=== PATIENT | female | born 1970 | race Caucasian/White ===

== ENCOUNTER → 2017-06-17 | Outpatient (CLI) | payer OTHER ==
--- NOTE | 2017-06-17 11:39 | XR ---
EXAMINATION TYPE: XR wrist complete LT DATE OF EXAM: 06/17/2017 CLINICAL HISTORY: Lateral wrist pain after lifting injury at work. TECHNIQUE: Frontal, lateral and oblique images of the left wrist are obtained. Scaphoid view was als o obtained. COMPARISON: None FINDINGS: There is no acute fracture/dislocation evident in the left wrist. The joint spaces in the left wrist appear within normal limits. The overlying soft tissue appears unremarkable. IMPRESSION: There is no acute fracture or dislocation in the left wrist.
== END | disposition home or self-care (01) ==
LOC: RADXRMAIN 11:03
PROVIDERS: ATTEND Emergency Medicine
DX: S63.502A Unspecified sprain of left wrist, initial encounter (principal)

== ENCOUNTER → 2018-05-12 | Outpatient (CLI) | payer BC ==
[2018-05-12 10:00] LABS: Potassium 4.2 mmol/L (3.5-5.1)
== END | disposition home or self-care (01) ==
LOC: LABPAT 08:56
PROVIDERS: ATTEND Anesthesiology
DX: Z01.818 Encounter for other preprocedural examination (principal); Z01.812 Encounter for preprocedural laboratory examination
CPT/HCPCS: 36415; 80051; 93005

== ENCOUNTER 2018-05-15 06:24 | Day surgery (SDC) | payer BC, OTHER ==
[2018-05-09 12:04] VITALS: BMI 42.5
[~2018-05-15 06:24] MED LIST: DEXAMETHASONE SOD PHOSPHATE 10 MG/ML 1 ML VIAL IV ONE; HEPARIN SODIUM,PORCINE 5,000 UNIT/ML 1 ML VIAL SQ ONE; HYDROmorphone 0.5 MG/0.5 ML SYRINGE IVP PRN; LACTATED RINGERS 1,000 ML IV SCH; LIDOCAINE 1% 20 ML VIAL (10MG/ML) FOR IV START INTRADERMA PRN; ONDANSETRON 4 MG/2 ML VIAL IVP ONE; SCOPOLAMINE 1.5MG/72HR PATCH TRANSDERM ONE; ceFAZolin IN SWFI 2 GM/20 ML SYRINGE IVP ONE; metroNIDAZOLE-NS PMX 500 MG in SALINE 1 100ML.BAG IVPB ONE
[2018-05-15 07:18] VITALS: RESP 16; TEMP 98
[2018-05-15 07:26] LABS: Glucose,Whole Blood 117 mg/dL (75-99)
--- NOTE | 2018-05-15 07:55 | P.GSHP ---
History of Present Illness H&P Date: 05/15/18 Chief Complaint: Pilonidal cyst This is a 48-year-old female who presents today for excision of pilonidal cyst. Patient issues with chronic skin irritation at the area of a pilonidal cyst. Patient aware the cyst will be excised and the OV local wound care with packing afterwards the procedure. Past Medical History Past Medical History: Diabetes Mellitus, Hypertension Additional Past Medical History / Comment(s): PILONIDAL CYST History of Any Multi-Drug Resistant Organisms: None Reported Past Surgical History: Tubal Ligation Past Anesthesia/Blood Transfusion Reactions: No Reported Reaction Smoking Status: Former smoker - Past Family History Mother Family Medical History: No Reported History Medications and Allergies Home Medications Medication Instructions Recorded Confirmed Type Hydrochlorothiazide [Hydrodiuril] 12.5 mg PO DAILY 07/30/14 05/15/18 History Ergocalciferol (Vitamin D2) 50,000 unit PO TH 05/09/18 05/15/18 History [Vitamin D2] metFORMIN HCL [Glucophage] 500 mg PO BID 05/09/18 05/15/18 History Allergies Allergy/AdvReac Type Severity Reaction Status Date / Time No Known Allergies Allergy Verified 05/09/18 11:59 Surgical - Exam Vital Signs Temp Pulse Resp BP Pulse Ox 98.0 F 68 16 96/59 97 05/15/18 07:16 05/15/18 07:16 05/15/18 07:16 05/15/18 07:16 05/15/18 07:16 - General well developed, no distress - Eyes PERRL - ENT normal pinna - Neck no masses - Respiratory normal expansion - Cardiovascular Rhythm: regular - Abdomen Abdomen: soft, non tender - Integumentary Chronically inflamed pilonidal cyst Results - Labs Abnormal Lab Results - Last 24 Hours (Table) 05/15/18 Range/Units 07:22 POC Glucose (mg/dL) 117 H (75-99) mg/dL Assessment and Plan Assessment: Analysis. We'll perform excision.
[2018-05-15] MEDS ORDERED: LIDOCAINE 1% INJ 10MG/ML (20 ML MDV) ONE (08:00)
[2018-05-15] MEDS ORDERED: PROPOFOL 10 MG/ML 20 ML VIAL IV ONE (08:00)
[2018-05-15] MEDS ORDERED: fentaNYL (PF) 50 MCG/ML 2 ML AMP ONE (08:00)
[2018-05-15] MEDS ORDERED: MIDAZOLAM 2 MG/2 ML VIAL ONE (08:00)
[2018-05-15] MEDS ORDERED: BUPIVACAINE-EPI 0.5%-1:200,000 10 ML VIAL SQ ONE (08:16)
--- NOTE | 2018-05-15 09:03 | P.OP ---
Date of Procedure: 05/15/18 Preoperative Diagnosis: Chronic pilonidal cyst Postoperative Diagnosis: Chronic pilonidal cyst Procedure(s) Performed: Pilonidal cystectomy complex Anesthesia: MAC Surgeon: Socrates Mills Estimated Blood Loss (ml): 5 Pathology: other (Pilonidal cyst) Condition: stable Disposition: PACU Description of Procedure: The patient's placed on the operating table in the supine position. She received IV sedation. She is then placed in the prone jackknife position. Her area of the pilonidal cyst was prepped and draped usual sterile fashion. The areas anesthetized 1% local Xylocaine. Elliptical skin incision was made around phimosis. He is much cautery by mouth cyst was excised. The Bovie was used for hemostasis. The wound was packed with Kerlix. Patient tolerated the procedure well and was sent to recovery room stable condition.
[2018-05-15 09:27] VITALS: BP 116/71; PULSE 71
== END 2018-05-15 09:40 | disposition home health service (06) ==
LOC: OR 06:24
PROVIDERS: ATTEND Surgery
DX: L05.01 Pilonidal cyst with abscess (principal); I10 Essential (primary) hypertension; E11.9 Type 2 diabetes mellitus without complications; Z79.84 Long term (current) use of oral hypoglycemic drugs; Z87.891 Personal history of nicotine dependence; Z79.899 Other long term (current) drug therapy
CPT/HCPCS: 81025; 88304; 11770; J2250; J1644; J1100; J2405; J2001; J3010; J2704; J0690

== ENCOUNTER → 2018-06-03 | Day surgery (SDC) | payer BC ==
[2018-06-03 07:32] VITALS: RESP 16; BMI 42.7
[2018-06-03 08:43] VITALS: BP 95/63; PULSE 65; TEMP 97.9
--- NOTE | 2018-06-03 11:23 | USB ---
EXAMINATION TYPE: US biopsy breast VAD LT, US biopsy breast add'l VAD LT DATE OF EXAM: 06/03/2018 CLINICAL HISTORY: N63 breast mass. 2 site left-sided breast biopsy with the lesions noted at the 5:00 and 6:00 positions. TECHNIQUE: Ultrasound guided core biopsy of breast. COMPARISON: NONE FINDINGS: The procedure of ultrasound guided core biopsy was explained to the patient. Benefits, alt ernatives, and risks were discussed. An informed consent was then obtained. The patient was placed in supine positioning for imaging and for the procedure. The overlying skin w as prepped and draped in usual sterile fashion. Lidocaine buffered with bicarbonate was used as anes thetic into the skin and subcutaneous tissue up to areas of concern. Under ultrasound guidance, a 12-gauge vacuum assisted biopsy gun device was used to obtain 3 core rob ples from the 5:00 lesion and 4 samples from the 6:00 lesion. Following this, a biopsy clip was plac ed in each lesion. The patient tolerated the procedure well without any immediate complication. The patient was kept in the radiology department for short stay after the procedure and then discharged h ome in stable condition. IMPRESSION: Successful, uncomplicated ultrasound guided core biopsy of areas of concern in the left b reast, full pathology results to follow.
== END ==
LOC: RADUSWWP 07:06
PROVIDERS: ATTEND Surgery
DX: N63.23 Unspecified lump in the left breast, lower outer quadrant (principal)
CPT/HCPCS: 88305; 77065; 19083; 19084; A4648; J2001

== ENCOUNTER 2022-03-01 21:04 | Observation (INO) | payer BC ==
--- NOTE | 2022-03-01 21:41 | XR ---
EXAMINATION TYPE: XR chest 2V DATE OF EXAM: 03/01/2022 9:25 PM COMPARISON: None TECHNIQUE: XR chest 2V Frontal and lateral views of the chest. CLINICAL INDICATION:Female, 51 years old with history of Chest Pain; FINDINGS: Lungs/Pleura: There is no evidence of pleural effusion, focal consolidation, or pneumothorax. Pulmonary vascularity: Unremarkable. Heart/mediastinum: Cardiomediastinal silhouette is unremarkable. Musculoskeletal: No acute osseous pathology. IMPRESSION: No acute cardiopulmonary disease/process.
[2022-03-01 21:49] LABS: Basophils # (A) 0.1 k/uL (0-0.2); Basophils % (A) 0 %; Eosinophils # (A) 0.3 k/uL (0-0.7); Eosinophils % (A) 2 %; HCT 39.1 % (34.0-46.0); HGB 12.6 gm/dL (11.4-16.0); Lymphocytes # (A) 4.4 k/uL (1.0-4.8); Lymphocytes % (A) 32 %; MCH 27.5 pg (25.0-35.0); MCHC 32.1 g/dL (31.0-37.0); MCV 85.7 fL (80.0-100.0); Mean Platelet Volume 7.6; Monocytes # (A) 0.5 k/uL (0-1.0); Monocytes % (A) 4 %; Neutrophils # (A) 8.2 k/uL (1.3-7.7); Neutrophils % (A) 60 %; Platelet Count 419 k/uL (150-450); RBC 4.56 m/uL (3.80-5.40); RDW 14.3 % (11.5-15.5); WBC 13.7 k/uL (3.8-10.6)
[2022-03-01 22:00] LABS: INR 0.9 (<1.2); Partial Thromboplastin Time 23.7 sec (22.0-30.0); Prothrombin Time 10.2 sec (9.0-12.0)
[2022-03-01 22:02] LABS: Albumin 3.9 g/dL (3.5-5.0); Calcium 8.8 mg/dL (8.4-10.2); Magnesium 1.8 mg/dL (1.6-2.3); Potassium 3.5 mmol/L (3.5-5.1); Total Bilirubin 0.3 mg/dL (0.2-1.3)
[2022-03-02] MEDS ORDERED: HEPARIN SOD,PORK IN 0.45% NACL PMX 25,000 UNIT/250 ML BAG IV ONE (01:00)
[2022-03-02] MEDS ORDERED: ASPIRIN 81 MG ONE (01:00)
[2022-03-02] MEDS ORDERED: HEPARIN SODIUM 1,000 UN/ML (10ML VL) ONE (01:00)
--- NOTE | 2022-03-02 06:59 | XR ---
EXAM: XR Chest, 1 View CLINICAL HISTORY: chest pain TECHNIQUE: Frontal view of the chest. COMPARISON: 07/30/2014 FINDINGS: Lungs: No consolidation or mass. Pleural space: No acute findings Heart: Mild cardiomegaly. Bones/joints: No acute findings. IMPRESSION: No acute cardiopulmonary process.
[2022-03-02 09:14] LABS: Basophils # (A) 0.06 X 10*3/uL (0.00-0.10); Basophils % (A) 0.5 %; Eosinophils # (A) 0.23 X 10*3/uL (0.04-0.35); Eosinophils % (A) 1.9 %; HCT 36.5 % (37.2-46.3); HGB 11.3 g/dL (12.0-15.0); Immature Grans, Automated 0.6 %; Lymphocytes # (A) 4.57 X 10*3/uL (0.90-5.00); Lymphocytes % (A) 37.6 %; MCH 26.5 pg (27.0-32.0); MCV 85.7 fL (80.0-97.0); Mean Platelet Volume 10.5 fL (9.5-12.2); Monocytes # (A) 0.79 X 10*3/uL (0.20-1.00); Monocytes % (A) 6.5 %; NRBC Per 100 WBC 0 /100 WBCS (0.0-0.0); Neutrophils # (A) 6.45 X 10*3/uL (1.80-7.70); Neutrophils % (A) 52.9 %; Platelet Count 370 X 10*3/uL (140-440); RBC 4.26 X 10*6/uL (4.10-5.20); RDW 14.4 % (11.5-14.5); WBC 12.17 X 10*3/uL (4.50-10.00)
[2022-03-02 09:37] LABS: African American GFR (CKD) 75.5 (60.0-200.0); Anion Gap 11.6 mmol/L (10.00-18.00); BUN/Creat Ratio 15.3 Ratio (12.00-20.00); Blood Urea Nitrogen 15.3 mg/dL (9.0-27.0); Calcium 9.3 mg/dL (8.7-10.3); Carbon Dioxide 25.4 mmol/L (20.0-27.5); Magnesium 2.1 mg/dL (1.5-2.4); Non-African American GFR(CKD) 65.2 (60.0-200.0); Potassium 3.9 mmol/L (3.5-5.5)
[2022-03-02] MEDS: HEPARIN SOD,PORK IN 0.45% NACL 25,000 UNIT in 0.45% NACL 1 250ML.BAG IV SCH (12:25)
[2022-03-02] MEDS ORDERED: IBUPROFEN 400 MG TAB PO PRN (13:05)
[2022-03-02] MEDS ORDERED: ALPRAZolam 0.25 MG TAB PO PRN (13:05)
[2022-03-02] MEDS ORDERED: MORPHINE SULFATE 4 MG/ML SYRINGE IVP PRN (13:05)
[2022-03-02] MEDS ORDERED: ONDANSETRON 4 MG/2 ML VIAL IVP PRN (13:05)
[2022-03-02] MEDS ORDERED: ACETAMINOPHEN TAB 325 MG TAB PO PRN (13:05)
[2022-03-02 13:20] LABS: Glucose,Whole Blood 146 mg/dL (75-99)
[2022-03-02] MEDS ORDERED: HEPARIN SODIUM 1,000 UN/ML (10ML VL) IV PRN (14:26)
[2022-03-02] MEDS ORDERED: HEPARIN SODIUM 1,000 UN/ML (10ML VL) IV ONE (14:26)
[2022-03-02 17:43] LABS: Glucose,Whole Blood 145 mg/dL (75-99)
[2022-03-02 20:13] LABS: Glucose,Whole Blood 153 mg/dL (75-99)
[2022-03-03] MEDS: HEPARIN SOD,PORK IN 0.45% NACL 25,000 UNIT in 0.45% NACL 1 250ML.BAG IV SCH (01:29)
[2022-03-03 05:10] LABS: INR 0.9 (<1.2); Partial Thromboplastin Time 48.3 sec (22.0-30.0); Prothrombin Time 10.4 sec (9.0-12.0)
[2022-03-03] MEDS ORDERED: INSULIN ASPART (NovoLOG) 100 UNIT/ML VIAL SQ SCH (07:30)
[2022-03-03 07:40] LABS: Glucose,Whole Blood 175 mg/dL (75-99)
[2022-03-03 08:28] VITALS: BP 107/69; PULSE 70; RESP 16; TEMP 97.9
--- NOTE | 2022-03-03 08:28 | P.HPIM ---
History of Present Illness Covering Dr. Del Rio starting from today 03/03 and tomorrow 03/04. Dr. Del Rio resume the care of the patient on Saturday. This is a pleasant 51 years old female with past medical history of diabetes mellitus, hypertension, cigarette smoker. Patient was admitted yesterday under Dr. Del Rio service for chest pain. Patient states she was working on her progress when she developed left arm pain and chest heaviness and tightness with some dyspnea that lasted for about 5 minutes, relieved by rest, while she is at rest she has another 2 episodes of chest tightness and left arm pain each one lasted for 5 minutes again. Patient states that her pain resolved now. She had some nausea but no vomiting. No dyspnea. No headache or numbness. No weakness. No urinary complaints or diarrhea. No fever. She smokes about half pack to one pack per day. No alcohol or illicit drugs She takes Abilify for depression and Lexapro for anxiety, she follow up with Lindy her primary physician for this purpose, a psychiatrist but she denies any signs and symptoms of depression or anxiety. She denies suicidal or homicidal ideation. Patient is afebrile, rest of Vitas looks stable labs on admission showing mild leukocytosis of 12.1, hemoglobin 11.3. Rest of CBC is unremarkable. BNP is unremarkable. Glucose 145. Phosphorus 4.0. Troponin 2 are connected less than 0.012. Chest x-ray: No acute cardiopulmonary process patient was started on heparin drip and admitted to the hospital Review of Systems Review of systems CONSTITUTIONAL: No fever, no malaise, no fatigue. HEENT: No recent visual problems or hearing problems. Denied any sore throat. CARDIOVASCULAR: No orthopnea, PND, no palpitations, no syncope. PULMONARY: No shortness of breath, no cough, no hemoptysis. GASTROINTESTINAL: No diarrhea, no nausea, no vomiting, no abdominal pain. Normoactive bowel sounds. NEUROLOGICAL: No headaches, no weakness, no numbness. HEMATOLOGICAL: Denies any bleeding or petechiae. GENITOURINARY: Denies any burning micturition, frequency, or urgency. MUSCULOSKELETAL/RHEUMATOLOGICAL: Denies any joint pain, swelling, or any muscle pain. ENDOCRINE: Denies any polyuria or polydipsia. Past Medical History Past Medical History: Diabetes Mellitus, Hypertension Additional Past Medical History / Comment(s): NIDDM type II History of Any Multi-Drug Resistant Organisms: None Reported Past Surgical History: Tubal Ligation Additional Past Surgical History / Comment(s): Excision of pilonidal cyst Past Anesthesia/Blood Transfusion Reactions: No Reported Reaction Smoking Status: Current every day smoker - Past Family History Mother Family Medical History: Cancer Additional Family Medical History / Comment(s): Mother from cancer, unknown primary Father Family Medical History: COPD Additional Family Medical History / Comment(s): Father from COPD Medications and Allergies Home Medications Medication Instructions Recorded Confirmed Type metFORMIN HCL [Glucophage] 500 mg PO BID 05/09/18 03/02/22 History ARIPiprazole [Abilify] 2 mg PO HS 03/02/22 03/02/22 History Ergocalciferol [Vitamin D2 (1250 1,250 mcg PO TH 03/02/22 03/02/22 History Mcg = 14796 Iu)] Escitalopram [Lexapro] 20 mg PO DAILY 03/02/22 03/02/22 History Lisinopril-Hctz 20-25 mg 1 tab PO DAILY 03/02/22 03/02/22 History [Zestoretic 20-25] Allergies Allergy/AdvReac Type Severity Reaction Status Date / Time No Known Allergies Allergy Verified 03/02/22 07:56 Physical Exam Vitals: Vital Signs Temp Pulse Pulse Resp BP BP Pulse Ox 03/03/22 01:02 98.3 F 80 18 100/66 98 03/02/22 19:52 97.6 F 84 128/84 97 03/02/22 14:33 98 F 70 16 100/67 98 03/02/22 14:00 70 16 03/02/22 12:38 97.8 F 68 18 99/67 98 03/02/22 12:19 84 18 127/86 95 03/02/22 07:58 82 18 123/79 96 Intake and Output 03/02/22 03/03/22 03/03/22 22:59 06:59 14:59 Intake Total 229.367 69.734 Balance 229.367 69.734 Intake: Intake, IV Titration 111.367 69.734 Amount Heparin Sod,Pork in 0.45% 111.367 69.734 NaCl 25,000 unit In 0.45 % NaCl 1 250ml.bag @ 7. 763 UNITS/KG/HR 10 mls/hr IV .Q24H [facility] Rx#: [id number] Oral 118 Other: # Voids 1 -GENERAL: The patient is alert and oriented x3, not in any acute distress. Morbidly obese HEENT: Pupils are round and equally reacting to light. EOMI. No scleral icterus. No conjunctival pallor. Normocephalic, atraumatic. No pharyngeal erythema. No thyromegaly. CARDIOVASCULAR: S1 and S2 present. No murmurs, rubs, or gallops. PULMONARY: Chest is clear to auscultation, no wheezing or crackles. ABDOMEN: Soft, nontender, nondistended, normoactive bowel sounds. No palpable organomegaly. MUSCULOSKELETAL: No joint swelling or deformity. EXTREMITIES: No cyanosis, clubbing, or pedal edema. NEUROLOGICAL: Gross neurological examination did not reveal any focal deficits. SKIN: No rashes. no petechiae. Results CBC & Chem 7: 03/02/22 05:05 03/02/22 05:05 Labs: Abnormal Lab Results - Last 24 Hours (Table) 03/02/22 03/02/22 03/02/22 Range/Units 05:05 05:05 13:18 WBC 12.17 H (4.50-10.00) X 10*3/uL Hgb 11.3 L (12.0-15.0) g/dL Hct 36.5 L (37.2-46.3) % MCH 26.5 L (27.0-32.0) pg MCHC 31.0 L (32.0-37.0) g/dL Immature Gran # 0.07 H (0.00-0.04) X 10*3/uL APTT (22.0-30.0) sec Glucose 145 H (70-110) mg/dL POC Glucose (mg/dL) 146 H (75-99) mg/dL 03/02/22 03/02/22 03/03/22 Range/Units 17:40 20:12 04:42 WBC (4.50-10.00) X 10*3/uL Hgb (12.0-15.0) g/dL Hct (37.2-46.3) % MCH (27.0-32.0) pg MCHC (32.0-37.0) g/dL Immature Gran # (0.00-0.04) X 10*3/uL APTT 48.3 H (22.0-30.0) sec Glucose (70-110) mg/dL POC Glucose (mg/dL) 145 H 153 H (75-99) mg/dL Thrombosis Risk Factor Assmnt - Choose All That Apply Any of the Below Risk Factors Present?: Yes Each Factor Represents 1 point: Age 41-60 years, Obesity (BMI >25) Other Risk Factors: No Other congenital or acquired thrombophilia - If yes, enter type in comment: No Thrombosis Risk Factor Assessment Total Risk Factor Score: 2 Thrombosis Risk Factor Assessment Level: Low Risk Assessment and Plan Assessment: Chest pain, rule out cardiac causes Diabetes mellitus, type II Hypertension Nicotine dependence Anxiety, depression, no connective tissue Obesity with BMI of 51.9 Plan: This Is a pleasant 51 female who presents with chest pain. serial troponins Cardiology consult Continue with heparin drip Patient is counseled to quit smoking, she does not want to quit and she declines nicotine patch Labs and medication were reviewed.. Continue same treatment. Continue with symptomatic treatment. Resume home medication. Monitor lytes and vitals. DVT and GI prophylaxis. Further recommendations as per clinical course of the patie nt DVT prophylaxis: heparin GI Prophylaxis: Pepcid
[2022-03-03 09:00] LABS: Basophils # (A) 0.05 X 10*3/uL (0.00-0.10); Basophils % (A) 0.4 %; Eosinophils # (A) 0.26 X 10*3/uL (0.04-0.35); Eosinophils % (A) 2.1 %; HCT 36.4 % (37.2-46.3); HGB 11.2 g/dL (12.0-15.0); Immature Grans, Automated 0.4 %; Lymphocytes # (A) 4.61 X 10*3/uL (0.90-5.00); MCH 26.7 pg (27.0-32.0); MCHC 30.8 g/dL (32.0-37.0); MCV 86.7 fL (80.0-97.0); Mean Platelet Volume 11.5 fL (9.5-12.2); Monocytes # (A) 0.87 X 10*3/uL (0.20-1.00); NRBC Per 100 WBC 0 /100 WBCS (0.0-0.0); Neutrophils # (A) 6.62 X 10*3/uL (1.80-7.70); Neutrophils % (A) 53.1 %; Platelet Count 385 X 10*3/uL (140-440); RDW 14.4 % (11.5-14.5); WBC 12.46 X 10*3/uL (4.50-10.00)
[2022-03-03] MEDS ORDERED: LISINOPRIL-HCTZ 20-25 MG 1 EACH TAB PO SCH (09:00)
[2022-03-03] MEDS ORDERED: FAMOTIDINE 20 MG/2 ML VIAL IV SCH (09:00)
[2022-03-03] MEDS ORDERED: ESCITALOPRAM 20 MG TAB PO SCH (09:00)
[2022-03-03 09:19] LABS: African American GFR (CKD) 75.5 (60.0-200.0); BUN/Creat Ratio 14.9 Ratio (12.00-20.00); Blood Urea Nitrogen 14.9 mg/dL (9.0-27.0); Calcium 8.6 mg/dL (8.7-10.3); Non-African American GFR(CKD) 65.2 (60.0-200.0); Potassium 4.2 mmol/L (3.5-5.5)
--- NOTE | 2022-03-03 09:38 | P.CRDCN ---
History of Present Illness History of present illness: HISTORY OF PRESENTING ILLNESS This is a pleasant 51-year-old with past medical history significant for tobacco abuse, hypertension, diabetes mellitus type 2, chronically elevated white blood cell count. She has never seen a insurance collector. She states she was mowing the lawn 2 days ago and it was a hot day and after a fair amount of activity started getting chest pressure and pain sensation associated with some shortness breath and nausea. She sat down and this did improve after approximately 30-40 minutes. She admitted to some diaphoresis however was a hot day. She has never had a similar episode prior. She came to the hospital and EKG showed right bundle-branch block with nonspecific changes. She has had no recurrence of the chest pain. Troponins normal 3. She does have chronically elevated white blood cell count. She states she was placed on a cholesterol medication in the past however believes her cholesterol is fairly normal and therefore took herself off of this. REVIEW OF SYSTEMS At the time of my exam: CONSTITUTIONAL: Denies fever or chills. CARDIOVASCULAR: +chest pain, +shortness of breath, no orthopnea, PND or palpitations. RESPIRATORY: Denies cough. GASTROINTESTINAL: Denies abdominal pain, diarrhea, constipation, +nausea, no vomiting. MUSCULOSKELETAL: Denies myalgias. NEUROLOGIC: Denies numbness, tingling or weakness. ENDOCRINE: Denies fatigue, weight change, polydipsia or polyurina. GENITOURINARY: Denies burning, hematuria or urgency with micturation. HEMATOLOGIC: Denies history of anemia or bleeding. PHYSICAL EXAMINATION Vital signs reviewed. CONSTITUTIONAL: No apparent distress. HEENT: Head is normocephalic. Pupils are equal, round. Sclerae anicteric. Mucous membranes of the mouth are moist. No JVD. No carotid bruit. CHEST EXAMINATION: Lungs are clear to auscultation. No chest wall tenderness is noted on palpation or with deep breathing. HEART EXAMINATION: Regular rate and rhythm. S1, S2 heard. No murmurs, gallops or rub. ABDOMEN: Soft, nontender. Positive bowel sounds. EXTREMITIES: 2+ peripheral pulses, no lower extremity edema and no calf tenderness. NEUROLOGIC EXAMINATION: Patient is awake, alert and oriented x3. ASSESSMENT 1. Chest pain times one episode while mowing the lawn. Troponin normal 3 and acute coronary syndrome ruled out 2. Hypertension 3. Diabetes mellitus type 2 4. Tobacco abuse 5. Obesity 6. Right bundle branch block PLAN Patient's chest pain does have some typical features with associated nausea or shortness breath and diaphoresis. This was more exercise than she has been doing in the past. Troponins normal 3. Discussed possible stress testing on Saturday versus discharge and workup as an outpatient. Patient has been walking the halls without any further chest pain and appears stable. Therefore patient would prefer workup as an outpatient. Aspirin and metoprolol going home and follow-up in office in 1 week for further echo and stress testing. Discussed that if chest pain returns to present to the emergency department or call our office. Await cholesterol levels. Past Medical History Past Medical History: Diabetes Mellitus, Hypertension Additional Past Medical History / Comment(s): NIDDM type II History of Any Multi-Drug Resistant Organisms: None Reported Past Surgical History: Tubal Ligation Additional Past Surgical History / Comment(s): Excision of pilonidal cyst Past Anesthesia/Blood Transfusion Reactions: No Reported Reaction Smoking Status: Current every day smoker - Past Family History Mother Family Medical History: Cancer Additional Family Medical History / Comment(s): Mother from cancer, unknown primary Father Family Medical History: COPD Additional Family Medical History / Comment(s): Father from COPD Medications and Allergies Home Medications Medication Instructions Recorded Confirmed Type metFORMIN HCL [Glucophage] 500 mg PO BID 05/09/18 03/02/22 History ARIPiprazole [Abilify] 2 mg PO HS 03/02/22 03/02/22 History Ergocalciferol [Vitamin D2 (1250 1,250 mcg PO TH 03/02/22 03/02/22 History Mcg = 62567 Iu)] Escitalopram [Lexapro] 20 mg PO DAILY 03/02/22 03/02/22 History Lisinopril-Hctz 20-25 mg 1 tab PO DAILY 03/02/22 03/02/22 History [Zestoretic 20-25] Allergies Allergy/AdvReac Type Severity Reaction Status Date / Time No Known Allergies Allergy Verified 03/02/22 07:56 Physical Exam Vitals: Vital Signs Temp Pulse Pulse Resp BP BP BP 03/03/22 07:00 97.9 F 70 16 107/69 03/03/22 01:02 98.3 F 80 18 100/66 03/02/22 19:52 97.6 F 84 128/84 03/02/22 14:33 98 F 70 16 100/67 03/02/22 14:00 70 16 03/02/22 12:38 97.8 F 68 18 99/67 03/02/22 12:19 84 18 127/86 Pulse Ox 03/03/22 07:00 96 03/03/22 01:02 98 03/02/22 19:52 97 03/02/22 14:33 98 03/02/22 14:00 03/02/22 12:38 98 03/02/22 12:19 95 Intake and Output 03/02/22 03/03/22 03/03/22 22:59 06:59 14:59 Intake Total 229.367 69.734 Balance 229.367 69.734 Intake: Intake, IV Titration 111.367 69.734 Amount Heparin Sod,Pork in 0.45% 111.367 69.734 NaCl 25,000 unit In 0.45 % NaCl 1 250ml.bag @ 7. 763 UNITS/KG/HR 10 mls/hr IV .Q24H [facility] Rx#: [id number] Oral 118 Other: # Voids 1 Results 03/03/22 04:42 03/03/22 04:42 Cardiac Enzymes 03/02/22 Range/Units : Troponin I <0.012 (0.000-0.034) ng/mL Coagulation 03/02/22 03/02/22 03/03/22 Range/Units 13:22 20:39 04:42 PT 10.4 (9.0-12.0) sec APTT 26.1 28.2 48.3 H (22.0-30.0) sec CBC 03/03/22 Range/Units 04:42 WBC 12.46 H (4.50-10.00) X 10*3/uL RBC 4.20 (4.10-5.20) X 10*6/uL Hgb 11.2 L (12.0-15.0) g/dL Hct 36.4 L (37.2-46.3) % Plt Count 385 (140-440) X 10*3/uL Comprehensive Metabolic Panel 03/02/22 03/03/22 Range/Units 05:05 04:42 Sodium 138 139 (135-145) mmol/L Potassium 3.9 4.2 (3.5-5.5) mmol/L Chloride 101 102 (96-109) mmol/L Carbon Dioxide 25.4 27.0 (20.0-27.5) mmol/L BUN 15.3 14.9 (9.0-27.0) mg/dL Creatinine 1.0 1.0 (0.6-1.5) mg/dL Glucose 145 H 174 H (70-110) mg/dL Calcium 9.3 8.6 L (8.7-10.3) mg/dL Current Medications Generic Name Dose Route Start Last Admin Trade Name Freq PRN Reason Stop Dose Admin Acetaminophen 650 mg 03/02/22 13:05 Acetaminophen Tab 325 Mg Tab PO Q6HR PRN Fever and/ or Pain Alprazolam 0.25 mg 03/02/22 13:05 Alprazolam 0.25 Mg Tab PO QID PRN Anxiety Escitalopram Oxalate 20 mg 03/03/22 09:00 03/03/22 07:51 Escitalopram 20 Mg Tab PO 20 mg DAILY XU Administration Famotidine 20 mg 03/03/22 09:00 03/03/22 08:43 Famotidine 20 Mg/2 Ml Vial IV 20 mg Q12HR XU Administration Lisinopril/HCTZ 1 each 03/03/22 09:00 03/03/22 07:51 Lisinopril-Hctz 20-25 Mg 1 Each Tab PO 1 each DAILY XU Administration Heparin Sodium (Porcine) 0 unit 03/02/22 14:26 03/02/22 21:41 Heparin Sodium 1,000 Un/Ml (10ml Vl) IV 4,000 unit PER PROTOCOL PRN Administration Low PTT Protocol Heparin Sodium/Sodium Chloride 250 mls @ 10 mls/hr 03/02/22 14:30 03/03/22 01:29 25,000 unit/ Sodium Chloride IV 13.763 units/kg/hr .Q24H XU 17.729 mls/hr Administration Protocol 7.763 UNITS/KG/HR Ibuprofen 400 mg 03/02/22 13:05 Ibuprofen 400 Mg Tab PO Q6HR PRN Pain Insulin Aspart 0 unit 03/03/22 07:30 03/03/22 07:48 Insulin Aspart (Novolog) 100 Unit/Ml Vial SQ Not Given ACHS XU Protocol Morphine Sulfate 4 mg 03/02/22 13:05 Morphine Sulfate 4 Mg/Ml Syringe IVP Q4HR PRN Pain Ondansetron HCl 4 mg 03/02/22 13:05 Ondansetron 4 Mg/2 Ml Vial IVP Q8HR PRN Nausea And Vomiting Intake and Output 03/02/22 03/03/22 03/03/22 22:59 06:59 14:59 Intake Total 229.367 69.734 Balance 229.367 69.734 Intake: Intake, IV Titration 111.367 69.734 Amount Heparin Sod,Pork in 0.45% 111.367 69.734 NaCl 25,000 unit In 0.45 % NaCl 1 250ml.bag @ 7. 763 UNITS/KG/HR 10 mls/hr IV .Q24H [facility] Rx#: [id number] Oral 118 Other: # Voids 1 03/03/22 04:42 03/03/22 04:42
[2022-03-03] MEDS ORDERED: METOPROLOL SUCCINATE (ER) 25 MG TAB.ER.24H PO SCH (09:45)
[2022-03-03] MEDS ORDERED: ASPIRIN 81 MG PO SCH (09:45)
[2022-03-05 09:24] LABS: Chol/HDL Ratio 4.75 Ratio
== END 2022-03-03 11:27 | disposition home or self-care (01) ==
LOC: EC 21:04 → 6NMEDSUR 03-02 01:50
PROVIDERS: ADMIT Family Medicine; ATTEND Family Medicine
DX: R07.89 Other chest pain (principal); E11.9 Type 2 diabetes mellitus without complications; I10 Essential (primary) hypertension; F17.210 Nicotine dependence, cigarettes, uncomplicated; I45.10 Unspecified right bundle-branch block; Z71.6 Tobacco abuse counseling; D72.829 Elevated white blood cell count, unspecified; M79.602 Pain in left arm; R06.02 Shortness of breath; R06.00 Dyspnea, unspecified; R61 Generalized hyperhidrosis; F41.9 Anxiety disorder, unspecified; F32.A Depression, unspecified; E66.9 Obesity, unspecified; Z68.43 Body mass index [BMI] 50.0-59.9, adult; Z79.84 Long term (current) use of oral hypoglycemic drugs; Z79.899 Other long term (current) drug therapy; Z98.51 Tubal ligation status; Z80.9 Family history of malignant neoplasm, unspecified; Z82.5 Family history of asthma and other chronic lower respiratory diseases
CPT/HCPCS: 99285; 96376 ×2; 96366 ×2; 96375; 96365; 36415; 93005; 80061; 80053; 80048 ×2; 83735 ×2; 84100; 84484 ×2; 85025 ×3; 85610 ×2; 85730 ×3; 71045; 71046; G0378 ×2; J1644 ×3

== ENCOUNTER → 2022-04-04 | Outpatient (CLI) | payer BC ==
--- NOTE | 2022-04-05 08:23 | CA ---
Transthoracic Echo Report Name: Aniya Baird Age: 51 Gender: F : 1970 Exam Date: 04/04/2022 13:49 Exam Location: [place] [facility] Ht (in): 62 Wt (lb): 289 Ordering Physician: Tate Carvalho DO ([email or web address]) Attending/Referring Phys: Research Project Coordinator Soco Mario RDCS Procedure CPT: Indications: R07.9 CHEST PAIN Cardiac Hx: Technical Quality: Fair Contrast 1: Total Dose (mL): Contrast 2: Total Dose (mL): MEASUREMENTS (Male / Female) Normal Values 2D ECHO LV Diastolic Diameter PLAX 4.0 cm 4.2 - 5.9 / 3.9 - 5.3 cm LV Systolic Diameter PLAX 2.8 cm IVS Diastolic Thickness 1.3 cm 0.6 - 1.0 / 0.6 - 0.9 cm LVPW Diastolic Thickness 1.2 cm 0.6 - 1.0 / 0.6 - 0.9 cm LV Relative Wall Thickness 0.6 RV Internal Dim ED PLAX 3.1 cm LA Volume 37.7 cm??? 18 - 58 / 22 - 52 cm??? M-MODE Aortic Root Diameter MM 3.2 cm LA Systolic Diameter MM 3.9 cm LA Ao Ratio MM 1.2 AV Cusp Separation MM 1.7 cm DOPPLER AV Peak Velocity 161.2 cm/s AV Peak Gradient 10.4 mmHg LVOT Peak Velocity 111.6 cm/s LVOT Peak Gradient 5.0 mmHg MV Area PHT 3.7 cm??? Mitral E Point Velocity 76.2 cm/s Mitral A Point Velocity 97.6 cm/s Mitral E to A Ratio 0.8 MV Deceleration Time 205.8 ms MV E' Velocity 7.0 cm/s Mitral E to MV E' Ratio 10.9 TR Peak Velocity 158.0 cm/s TR Peak Gradient 10.0 mmHg Right Ventricular Systolic Press 14.5 mmHg FINDINGS Left Ventricle Moderately increased left ventricular wall thickness. Normal left ventricular systolic function with no obvious regional wall motion abnormalities. Normal left ventricular diastolic filling pattern. Left ventricular ejection fraction is estimated at 55-60 %. Right Ventricle Normal right ventricular size and function. Right ventricular systolic pressure within normal limits. Right Atrium Right atrium not well visualized. Left Atrium Normal left atrial size. No evidence for an atrial septal defect. Mitral Valve Structurally normal mitral valve. No mitral stenosis, regurgitation or prolapse. Aortic Valve No aortic valve stenosis or regurgitation. Tricuspid Valve Structurally normal tricuspid valve. Mild tricuspid regurgitation. Pulmonic Valve Structurally normal pulmonic valve. Pericardium No pericardial effusion. Aorta Normal size aortic root and proximal ascending aorta. CONCLUSIONS Technically somewhat difficult study. Toni the left ventricle size and systolic function is normal with mild concentric LVH. Mild mitral and tricuspid insufficiency. No pericardial effusion Previewed by: Dr. Enrique Luna MD (Electronically Signed) Final Date: 05 April 2022 08:22
== END | disposition home or self-care (01) ==
LOC: RADECHMAIN 13:42
PROVIDERS: ATTEND Internal Medicine
DX: I08.1 Rheumatic disorders of both mitral and tricuspid valves (principal)
CPT/HCPCS: 93306

== ENCOUNTER 2022-08-26 18:53 | Emergency (ER) | payer BC, OTHER ==
--- NOTE | 2022-08-26 21:18 | ED ---
GI Bleed HPI - General Source: patient Mode of arrival: ambulatory Limitations: no limitations <Tianna Ye - Last Filed: 08/26/22 21:06> - History of Present Illness MD complaint: blood on toilet paper, blood streaked stool -: hour(s) Radiation: none Quality: painless Consistency: constant Improves with: none Worsens with: bowel movement Associated Symptoms: denies other symptoms <Karlos Hart - Last Filed: 08/26/22 23:54> - General Chief complaint: GI Bleed Stated complaint: Blood In Stool Time Seen by Provider: 08/26/22 19:10 - History of Present Illness Initial comments: 52-year-old female with past medical history of diabetes and hypertension presents to the emergency department with reported bright red blood per rectum. Patient states that last night she began having bright red blood which is visible when she wipes as well as adjacent to the stool in the toilet. Reports that she only sees the blood when she has a bowel movement. She did have 3 bowel movements today. Denies constipation, diarrhea, or black stools. No fevers. No sick contacts with similar symptoms. No history of inflammatory bowel disease. She has mild abdominal pain. Denies any rectal pain. She has never had a colonoscopy. No history of similar in the past. Patient is not on any blood thinners. No other alleviating, precipitating or modifying factors (Tianna Ye) - Related Data Home Medications Medication Instructions Recorded Confirmed metFORMIN HCL [Glucophage] 500 mg PO BID 05/09/18 03/02/22 ARIPiprazole [Abilify] 2 mg PO HS 03/02/22 03/02/22 Ergocalciferol [Vitamin D2 (1250 1,250 mcg PO TH 03/02/22 03/02/22 Mcg = 16191 Iu)] Escitalopram [Lexapro] 20 mg PO DAILY 03/02/22 03/02/22 Lisinopril-Hctz 20-25 mg 1 tab PO DAILY 03/02/22 03/02/22 [Zestoretic 20-25] Previous Rx's Medication Instructions Recorded Aspirin 81 mg PO DAILY #30 03/03/22 Metoprolol Succinate (ER) [Toprol 25 mg PO DAILY #30 03/03/22 XL] Allergies Allergy/AdvReac Type Severity Reaction Status Date / Time No Known Allergies Allergy Verified 08/26/22 19:12 Review of Systems ROS Other: All systems not noted in ROS Statement are negative. <Tianna Ye - Last Filed: 08/26/22 21:06> ROS Other: All systems not noted in ROS Statement are negative. <Karlos Hart - Last Filed: 08/26/22 23:54> ROS Statement: Those systems with pertinent positive or pertinent negative responses have been documented in the HPI. Past Medical History Past Medical History: Diabetes Mellitus, Hypertension Additional Past Medical History / Comment(s): NIDDM type II History of Any Multi-Drug Resistant Organisms: None Reported Past Surgical History: Tubal Ligation Additional Past Surgical History / Comment(s): Excision of pilonidal cyst Past Anesthesia/Blood Transfusion Reactions: No Reported Reaction Past Psychological History: Anxiety, Depression Smoking Status: Current every day smoker Past Alcohol Use History: Rare Past Drug Use History: None Reported - Past Family History Mother Family Medical History: Cancer Additional Family Medical History / Comment(s): Mother from cancer, unknown primary Father Family Medical History: COPD Additional Family Medical History / Comment(s): Father from COPD <Tianna Ye - Last Filed: 08/26/22 21:06> General Exam Limitations: no limitations General appearance: alert, in no apparent distress Head exam: Present: atraumatic, normocephalic, normal inspection Eye exam: Present: normal appearance, PERRL, EOMI. Absent: scleral icterus, conjunctival injection, periorbital swelling ENT exam: Present: normal exam, mucous membranes moist Neck exam: Present: normal inspection. Absent: tenderness, meningismus, lymphadenopathy Respiratory exam: Present: normal lung sounds bilaterally. Absent: respiratory distress, wheezes, rales, rhonchi, stridor Cardiovascular Exam: Present: regular rate, normal rhythm, normal heart sounds. Absent: systolic murmur, diastolic murmur, rubs, gallop, clicks GI/Abdominal exam: Present: soft, normal bowel sounds. Absent: distended, tenderness, guarding, rebound, rigid Rectal exam: Present: bloody stool, hemorrhoids Extremities exam: Present: normal inspection, full ROM, normal capillary refill. Absent: tenderness, pedal edema, joint swelling, calf tenderness Back exam: Present: normal inspection Neurological exam: Present: alert, oriented X3, CN II-XII intact Psychiatric exam: Present: normal affect, normal mood Skin exam: Present: warm, dry, intact, normal color. Absent: rash <Tianna Ye - Last Filed: 08/26/22 21:06> General appearance: alert, in no apparent distress Head exam: Present: atraumatic, normocephalic, normal inspection Eye exam: Present: normal appearance, PERRL, EOMI. Absent: scleral icterus, conjunctival injection, periorbital swelling ENT exam: Present: normal exam, mucous membranes moist Neck exam: Present: normal inspection. Absent: tenderness, meningismus, lymphadenopathy Respiratory exam: Present: normal lung sounds bilaterally. Absent: respiratory distress, wheezes, rales, rhonchi, stridor Cardiovascular Exam: Present: regular rate, normal rhythm, normal heart sounds. Absent: systolic murmur, diastolic murmur, rubs, gallop, clicks GI/Abdominal exam: Present: soft, normal bowel sounds. Absent: distended, tenderness, guarding, rebound, rigid Extremities exam: Present: normal inspection, full ROM, normal capillary refill. Absent: tenderness, pedal edema, joint swelling, calf tenderness Back exam: Present: normal inspection Neurological exam: Present: alert, oriented X3, CN II-XII intact Psychiatric exam: Present: normal affect, normal mood Skin exam: Present: warm, dry, intact, normal color. Absent: rash <Karlos Hart - Last Filed: 08/26/22 23:54> Course <Karlos Hart - Last Filed: 08/26/22 23:54> Vital Signs 08/26/22 08/26/22 08/26/22 19:10 21:39 23:29 Temperature 98.8 F Pulse Rate 98 82 76 Respiratory 18 16 19 Rate Blood Pressure 130/83 115/82 112/65 O2 Sat by Pulse 97 97 97 Oximetry - Reevaluation(s) Reevaluation #1: 08/26/22 23:37 Medical records reviewed (Karlos Hart) Reevaluation #2: 08/26/22 23:37 Patient without a bloody bowel movement here in the ER Patient is not lightheaded dizzy or weak (Karlos Hart) Medical Decision Making - Lab Data Result diagrams: 08/26/22 21:39 08/26/22 21:39 - Radiology Data Radiology results: report reviewed (CT of the abdomen and pelvis negative for acute disease), image reviewed <Karlos Hart - Last Filed: 08/26/22 23:54> - Medical Decision Making 52 female to the emergency department for evaluation of blood on toilet paper b lood in stool. No recurrent bleeding here in the emergency department. Computed tomography scan negative labwork is normal patient can be discharged home (Karlos Hart) - Lab Data Lab Results 08/26/22 08/26/22 08/26/22 Range/Units 21:39 21:39 21:39 WBC 16.0 H (3.8-10.6) k/uL RBC 4.47 (3.80-5.40) m/uL Hgb 12.3 (11.4-16.0) gm/dL Hct 37.1 (34.0-46.0) % MCV 83.0 (80.0-100.0) fL MCH 27.6 (25.0-35.0) pg MCHC 33.3 (31.0-37.0) g/dL RDW 14.6 (11.5-15.5) % Plt Count 380 (150-450) k/uL MPV 8.0 Neutrophils % 67 % Lymphocytes % 25 % Monocytes % 4 % Eosinophils % 2 % Basophils % 1 % Neutrophils # 10.7 H (1.3-7.7) k/uL Lymphocytes # 4.0 (1.0-4.8) k/uL Monocytes # 0.6 (0-1.0) k/uL Eosinophils # 0.2 (0-0.7) k/uL Basophils # 0.1 (0-0.2) k/uL PT 10.1 (9.0-12.0) sec INR 0.9 (<1.2) APTT 24.2 (22.0-30.0) sec Sodium (137-145) mmol/L Potassium (3.5-5.1) mmol/L Chloride (98-107) mmol/L Carbon Dioxide (22-30) mmol/L Anion Gap mmol/L BUN (7-17) mg/dL Creatinine (0.52-1.04) mg/dL Est GFR (CKD-EPI)AfAm (>60 ml/min/1.73 sqM) Est GFR (CKD-EPI)NonAf (>60 ml/min/1.73 sqM) Glucose (74-99) mg/dL Plasma Lactic Acid Segun (0.7-2.0) mmol/L Calcium (8.4-10.2) mg/dL Total Bilirubin (0.2-1.3) mg/dL AST (14-36) U/L ALT (4-34) U/L Alkaline Phosphatase (38-126) U/L Troponin I (0.000-0.034) ng/mL Total Protein (6.3-8.2) g/dL Albumin (3.5-5.0) g/dL Stool Occult Blood Positive H (Negative) 08/26/22 08/26/22 08/26/22 Range/Units 21:39 21:39 21:39 WBC (3.8-10.6) k/uL RBC (3.80-5.40) m/uL Hgb (11.4-16.0) gm/dL Hct (34.0-46.0) % MCV (80.0-100.0) fL MCH (25.0-35.0) pg MCHC (31.0-37.0) g/dL RDW (11.5-15.5) % Plt Count (150-450) k/uL MPV Neutrophils % % Lymphocytes % % Monocytes % % Eosinophils % % Basophils % % Neutrophils # (1.3-7.7) k/uL Lymphocytes # (1.0-4.8) k/uL Monocytes # (0-1.0) k/uL Eosinophils # (0-0.7) k/uL Basophils # (0-0.2) k/uL PT (9.0-12.0) sec INR (<1.2) APTT (22.0-30.0) sec Sodium 136 L (137-145) mmol/L Potassium 4.2 (3.5-5.1) mmol/L Chloride 102 (98-107) mmol/L Carbon Dioxide 28 (22-30) mmol/L Anion Gap 6 mmol/L BUN 21 H (7-17) mg/dL Creatinine 0.99 (0.52-1.04) mg/dL Est GFR (CKD-EPI)AfAm 76 (>60 ml/min/1.73 sqM) Est GFR (CKD-EPI)NonAf 66 (>60 ml/min/1.73 sqM) Glucose 165 H (74-99) mg/dL Plasma Lactic Acid Segun 1.4 (0.7-2.0) mmol/L Calcium 9.0 (8.4-10.2) mg/dL Total Bilirubin 0.2 (0.2-1.3) mg/dL AST 23 (14-36) U/L ALT 25 (4-34) U/L Alkaline Phosphatase 134 H (38-126) U/L Troponin I <0.012 (0.000-0.034) ng/mL Total Protein 7.1 (6.3-8.2) g/dL Albumin 3.8 (3.5-5.0) g/dL Stool Occult Blood (Negative) Disposition <Tianna Ye A - Last Filed: 08/26/22 21:06> Is patient prescribed a controlled substance at d/c from ED?: No Time of Disposition: 23:50 <Karlos Hart - Last Filed: 08/26/22 23:54> Clinical Impression: Lower gastrointestinal hemorrhage Disposition: HOME SELF-CARE Condition: Good Instructions (If sedation given, give patient instructions): Gastrointestinal Bleeding (ED) Referrals: Marina Hinds DO [Primary Care Provider] - 1-2 days
[2022-08-26 21:55] LABS: Basophils # (A) 0.1 k/uL (0-0.2); Basophils % (A) 1 %; Eosinophils # (A) 0.2 k/uL (0-0.7); Eosinophils % (A) 2 %; HCT 37.1 % (34.0-46.0); HGB 12.3 gm/dL (11.4-16.0); Lymphocytes % (A) 25 %; MCH 27.6 pg (25.0-35.0); MCHC 33.3 g/dL (31.0-37.0); Monocytes # (A) 0.6 k/uL (0-1.0); Monocytes % (A) 4 %; Neutrophils # (A) 10.7 k/uL (1.3-7.7); Neutrophils % (A) 67 %; Platelet Count 380 k/uL (150-450); RBC 4.47 m/uL (3.80-5.40); RDW 14.6 % (11.5-15.5)
[2022-08-26 22:05] LABS: Albumin 3.8 g/dL (3.5-5.0); Potassium 4.2 mmol/L (3.5-5.1); Total Bilirubin 0.2 mg/dL (0.2-1.3); Total Protein 7.1 g/dL (6.3-8.2)
[2022-08-26 22:33] LABS: INR 0.9 (<1.2); Partial Thromboplastin Time 24.2 sec (22.0-30.0); Prothrombin Time 10.1 sec (9.0-12.0)
[2022-08-26 23:30] VITALS: BP 112/65; PULSE 76; RESP 19
--- NOTE | 2022-08-26 23:43 | CT ---
EXAMINATION TYPE: CT abdomen pelvis w con DATE OF EXAM: 08/26/2022 COMPARISON: None HISTORY: ABD PAIN CT DLP: 2480.1 mGycm Automated exposure control for dose reduction was used. CONTRAST: Performed with IV Contrast, patient injected with 100 mL of Isovue 300. Images obtained from the diaphragm to the floor the pelvis with IV contrast. The lung bases are clear. No pleural effusion. Heart size is normal. No pericardial effusion. Liver s pleen and stomach pancreas and gallbladder appear intact. The bile duct are not dilated. There is no adrenal mass. Kidneys of normal size and contour. There is normal contrast opacification of the kidneys. No hydronephrosis. There are multiple small calculi in the upper pole left kidney. Th ere is 1 mm calculus lower pole right kidney. No retroperitoneal adenopathy. Ureters are not dilated. Delayed images show normal renal excretion. The bladder distends smoothly. No inguinal hernia. No fr ee fluid in the pelvis. Uterus is anteverted. No pelvic mass. There is a 1.5 cm calcification in the large bowel mesenteric fat that could be fat necrosis. No mesenteric edema. No ascites or free air. No sign of a bowel obstruction. Appendix not clearly see n. No sign of thickened appendix. The lumbar vertebrae have normal alignment. Disc spaces are normal. Posterior element are intact. No compression fracture. Bony pelvis is intact. The hip joints are int act. IMPRESSION: Nonobstructing renal calculi. Otherwise negative CT scan of the abdomen and pelvis.
[2022-08-27 00:09] VITALS: TEMP 98.4
== END 2022-08-27 00:09 | disposition home or self-care (01) ==
LOC: EC 18:53
DX: K92.2 Gastrointestinal hemorrhage, unspecified (principal); F32.A Depression, unspecified; F41.9 Anxiety disorder, unspecified; F17.200 Nicotine dependence, unspecified, uncomplicated; E11.9 Type 2 diabetes mellitus without complications; I10 Essential (primary) hypertension; Z79.84 Long term (current) use of oral hypoglycemic drugs; Z79.899 Other long term (current) drug therapy; Z79.811 Long term (current) use of aromatase inhibitors; Z79.01 Long term (current) use of anticoagulants
CPT/HCPCS: 36415; 80053; 83605; 84484; 85025; 85610; 85730; 82272; 74177; 99285; Q9967

== ENCOUNTER 2023-03-14 07:17 | Day surgery (SDC) | payer OTHER ==
[~2023-03-14 07:17] MED LIST changes: -DEXAMETHASONE SOD PHOSPHATE 10 MG/ML 1 ML VIAL IV ONE; -HEPARIN SODIUM,PORCINE 5,000 UNIT/ML 1 ML VIAL SQ ONE; -HYDROmorphone 0.5 MG/0.5 ML SYRINGE IVP PRN; +LIDOCAINE 1% (10MG/ML) FOR IV START INTRADERMA PRN; -LIDOCAINE 1% 20 ML VIAL (10MG/ML) FOR IV START INTRADERMA PRN; -ONDANSETRON 4 MG/2 ML VIAL IVP ONE; -SCOPOLAMINE 1.5MG/72HR PATCH TRANSDERM ONE; -ceFAZolin IN SWFI 2 GM/20 ML SYRINGE IVP ONE; -metroNIDAZOLE-NS PMX 500 MG in SALINE 1 100ML.BAG IVPB ONE
[2023-03-14 08:06] VITALS: TEMP 97.1
[2023-03-14 08:20] LABS: Glucose,Whole Blood 178 mg/dL (70-110)
[2023-03-14] MEDS ORDERED: PROPOFOL 10 MG/ML 20 ML VIAL IV ONE (08:23)
--- NOTE | 2023-03-14 08:26 | P.GSHP ---
History of Present Illness H&P Date: 03/14/23 Chief Complaint: Rectal bleeding This a 52-year-old female who presents today for colonoscopy. Patient's had issues with rectal bleeding. Patient never had a colonoscopy before. Past Medical History Past Medical History: Diabetes Mellitus, Hypertension Additional Past Medical History / Comment(s): NIDDM type II History of Any Multi-Drug Resistant Organisms: None Reported Past Surgical History: Tubal Ligation Additional Past Surgical History / Comment(s): Excision of pilonidal cyst Past Anesthesia/Blood Transfusion Reactions: No Reported Reaction Past Psychological History: Anxiety, Depression Smoking Status: Current every day smoker Past Alcohol Use History: Rare Additional Past Alcohol Use History / Comment(s): SMOKES ABOUT UNDER 1 PPD. Pt started smoking as a teen and quit for a few years but resumed smoking 01/2021 Past Drug Use History: None Reported - Past Family History Mother Family Medical History: Cancer Additional Family Medical History / Comment(s): Mother from cancer, unknown primary Father Family Medical History: COPD Additional Family Medical History / Comment(s): Father from COPD Medications and Allergies Home Medications Medication Instructions Recorded Confirmed Type metFORMIN HCL [Glucophage] 500 mg PO BID 05/09/18 03/13/23 History ARIPiprazole [Abilify] 2 mg PO HS 03/02/22 03/13/23 History Ergocalciferol [Vitamin D2 (1250 1,250 mcg PO TH 03/02/22 03/13/23 History Mcg = 73413 Iu)] Escitalopram [Lexapro] 20 mg PO QAM 03/02/22 03/13/23 History Lisinopril-Hctz 20-25 mg 1 tab PO [facility] 03/02/22 03/13/23 History [Zestoretic 20-25] Aspirin 81 mg PO DAILY #30 03/03/22 03/13/23 Rx Metoprolol Succinate (ER) [Toprol 25 mg PO QAM 03/13/23 03/13/23 History XL] Allergies Allergy/AdvReac Type Severity Reaction Status Date / Time No Known Allergies Allergy Verified 03/14/23 08:01 Surgical - Exam Vital Signs Temp Pulse Resp BP Pulse Ox 97.1 F L 81 16 128/68 96 03/14/23 08:05 03/14/23 08:05 03/14/23 08:05 03/14/23 08:05 03/14/23 08:05 - General well developed, well nourished, no distress - Eyes PERRL - ENT normal pinna - Neck no masses - Respiratory normal expansion - Cardiovascular Rhythm: regular - Abdomen Abdomen: soft, non tender Results - Labs Abnormal Lab Results - Last 24 Hours (Table) 03/14/23 Range/Units 08:11 POC Glucose (mg/dL) 178 H (70-110) mg/dL Assessment and Plan Assessment: History of rectal bleeding. We'll perform colonoscopy.
--- NOTE | 2023-03-14 08:41 | P.OP ---
Date of Procedure: 03/14/23 Preoperative Diagnosis: Rectal bleeding Postoperative Diagnosis: Normal colonoscopy Procedure(s) Performed: Colonoscopy Anesthesia: MAC Surgeon: Socrates Mills Pathology: none sent Condition: stable Disposition: PACU Description of Procedure: The patient's placed on the endoscopy table in the lateral position. She received IV sedation. Digital rectal exam was performed. This revealed no abnormalities. Flexible colonoscope was then placed patient anus and passed throughout the entire colon. Ileocecal valve was visualized. The cecum, ascending and transverse colon appeared normal. The descending and sigmoid colon appeared normal. Scope was then brought back the rectum and this appeared normal. Scope was withdrawn for patient. There is no evidence of any source of rectal bleeding. Presumed patient may have had some anal trauma from bowel movements which precipitated some rectal bleeding. However today on the endoscopy there is no evidence of any GI bleed.
[2023-03-14 08:58] LABS: Glucose,Whole Blood 179 mg/dL (70-110)
[2023-03-14 09:03] VITALS: BP 97/71; PULSE 76; RESP 15
== END 2023-03-14 09:22 | disposition home or self-care (01) ==
LOC: ORWHC2ENDO 07:17
PROVIDERS: ATTEND Surgery
DX: K62.5 Hemorrhage of anus and rectum (principal); E11.9 Type 2 diabetes mellitus without complications; I10 Essential (primary) hypertension; F17.210 Nicotine dependence, cigarettes, uncomplicated; F41.8 Other specified anxiety disorders; F10.90 Alcohol use, unspecified, uncomplicated; Z79.82 Long term (current) use of aspirin; Z79.899 Other long term (current) drug therapy; Z98.51 Tubal ligation status; Z79.84 Long term (current) use of oral hypoglycemic drugs
CPT/HCPCS: 45378; J2704

== ENCOUNTER 2023-09-15 18:28 | Emergency (ER) | payer OTHER, BC ==
[2023-09-15 18:44] VITALS: BP 132/80; TEMP 97.8
--- NOTE | 2023-09-15 19:15 | XR ---
EXAMINATION TYPE: XR hand complete RT DATE OF EXAM: 09/15/2023 6:55 PM CLINICAL INDICATION:Female, 53 years old with history of injury; COMPARISON: None TECHNIQUE: XR hand complete RT Frontal, lateral and oblique views were obtained. FINDINGS: Normal alignment of the visualized joints. No acute osseous pathology is identified. No e vidence of soft tissue swelling. IMPRESSION: No acute osseous pathology.
[2023-09-15] MEDS ORDERED: ACETAMINOPHEN TAB 325 MG TAB PO STA (20:19)
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
[2023-09-15 21:02] VITALS: PULSE 74; RESP 18
== END 2023-09-15 20:51 | disposition home or self-care (01) ==
LOC: EC 18:28
DX: S63.610A Unspecified sprain of right index finger, initial encounter (principal); S63.612A Unspecified sprain of right middle finger, initial encounter; E11.9 Type 2 diabetes mellitus without complications; I10 Essential (primary) hypertension; F41.9 Anxiety disorder, unspecified; F32.A Depression, unspecified; F17.200 Nicotine dependence, unspecified, uncomplicated; Z79.84 Long term (current) use of oral hypoglycemic drugs; Z79.899 Other long term (current) drug therapy; X50.0XXA Overexertion from strenuous movement or load, initial encounter; Y92.009 Unspecified place in unspecified non-institutional (private) residence as the place of occurrence of the external cause
CPT/HCPCS: 99283

== ENCOUNTER → 2023-09-23 | Outpatient (CLI) | payer OTHER ==
--- NOTE | 2023-09-23 20:41 | XR ---
EXAMINATION TYPE: XR hand complete RT DATE OF EXAM: 09/23/2023 4:13 PM CLINICAL INDICATION:Female, 53 years old with history of S63.610D; [facility] COMPARISON: 09/15/2023. TECHNIQUE: XR hand complete RT Frontal, lateral and oblique views were obtained. FINDINGS: Normal alignment of the visualized joints. No acute osseous pathology is identified. No e vidence of soft tissue swelling. IMPRESSION: No acute osseous pathology.
== END | disposition home or self-care (01) ==
LOC: RADXRMAIN 16:01
PROVIDERS: ATTEND Emergency Medicine
DX: S63.610D Unspecified sprain of right index finger, subsequent encounter (principal)

== ENCOUNTER → 2023-12-05 | Outpatient (CLI) | payer BC ==
[2023-12-05 18:37] LABS: HCT 44.2 % (37.2-46.3); HGB 13.8 g/dL (12.0-15.0); MCH 27.5 pg (27.0-32.0); MCHC 31.2 g/dL (32.0-37.0); Mean Platelet Volume 10.7 FL (9.5-12.2); NRBC Per 100 WBC 0 X 10*3/uL (0.00-0.01); Platelet Count 437 X 10*3/uL (140-440); RBC 5.02 X 10*6/uL (4.10-5.20); RDW 14.2 % (11.5-14.5); WBC 15.03 X 10*3/uL (4.50-10.00)
[2023-12-05 19:05] LABS: ALT 24 U/L (8-44); AST 19 U/L (13-35); Albumin 4.2 g/dL (3.8-4.9); Albumin/Globulin Ratio 1.24 Ratio (1.60-3.17); Alkaline Phosphatase 126 U/L (41-126); Blood Urea Nitrogen 24.7 mg/dL (9.0-27.0); Calcium 9.8 mg/dL (8.7-10.3); Carbon Dioxide 27.6 mmol/L (21.6-31.8); Chloride 98 mmol/L (96-109); Chol/HDL Ratio 5.07 Ratio; Globulin 3.4 g/dL (1.6-3.3); Glucose 99 mg/dL (70-110); LDL Cholesterol,Calculated 100.7 mg/dL (0.0-131.0); Potassium 4.9 mmol/L (3.5-5.5); Sodium 136 mmol/L (135-145); Total Bilirubin 0.2 mg/dL (0.3-1.2); Total Protein 7.6 g/dL (6.2-8.2)
== END | disposition home or self-care (01) ==
LOC: LABWHC1 12:14
PROVIDERS: ATTEND Physician Assistant Medical
DX: I10 Essential (primary) hypertension (principal); E11.9 Type 2 diabetes mellitus without complications; Z79.899 Other long term (current) drug therapy
CPT/HCPCS: 36415; 80053; 80061; 83036; 84443; 85027

== ENCOUNTER 2023-12-16 19:23 | Emergency (ER) | payer BC ==
--- NOTE | 2023-12-16 19:51 | ED ---
General Adult HPI - General Source: patient, RN notes reviewed Mode of arrival: ambulatory Limitations: no limitations <Belem Lerma - Last Filed: 12/16/23 19:51> <Tramaine Mills - Last Filed: 12/19/23 19:15> - General Chief complaint: Recheck/Abnormal Lab/Rx Stated complaint: Lower Extremities issues,Blood in stool Time Seen by Provider: 12/16/23 19:49 - History of Present Illness Initial comments: 53-year-old female presents to the emergency department for evaluation of dysuria, rectal pain. She states that she was recently diagnosed and treated for urinary tract infection. Following this she was diagnosed with influenza. She states that today she noted rectal pain while having a bowel movement. She also note continued pain with urination. (Belem Lerma) 53-year-old female presenting with chief complaint of painful urination. Patient was having pain a few days ago and was started on antibiotics for UTI. She was experiencing unwanted side effects and discontinued her antibiotics. She is now having worsening pain with urination. She also notes rectal pain with bowel movements today. She admits to bright red blood in her stool. She has had previous rectal bleeding. She had a normal colonoscopy about a year ago. She is having no abdominal pain. No fevers. No vomiting. No flank pain. No chest pain or difficulty breathing. No diarrhea. No history of inf lammatory bowel disease. (Tramaine Mills) - Related Data Home Medications Medication Instructions Recorded Confirmed metFORMIN HCL [Glucophage] 500 mg PO BID 05/09/18 03/13/23 ARIPiprazole [Abilify] 2 mg PO HS 03/02/22 03/13/23 Ergocalciferol [Vitamin D2 (1250 1,250 mcg PO TH 03/02/22 03/13/23 Mcg = 18214 Iu)] Escitalopram [Lexapro] 20 mg PO QAM 03/02/22 03/13/23 Lisinopril-Hctz 20-25 mg 1 tab PO QAM 03/02/22 03/13/23 [Zestoretic 20-25] Metoprolol Succinate (ER) [Toprol 25 mg PO QAM 03/13/23 03/13/23 XL] Previous Rx's Medication Instructions Recorded Aspirin 81 mg PO DAILY #30 03/03/22 Cephalexin [Keflex] 500 mg PO Q12HR 7 Days #14 cap 12/16/23 Allergies Allergy/AdvReac Type Severity Reaction Status Date / Time No Known Allergies Allergy Verified 12/16/23 19:45 Review of Systems ROS Other: All systems not noted in ROS Statement are negative. <Belem Lerma - Last Filed: 12/16/23 19:51> ROS Other: All systems not noted in ROS Statement are negative. <Tramaine Mills - Last Filed: 12/19/23 19:15> ROS Statement: Those systems with pertinent positive or pertinent negative responses have been documented in the HPI. Past Medical History Past Medical History: Diabetes Mellitus, Hypertension Additional Past Medical History / Comment(s): NIDDM type II History of Any Multi-Drug Resistant Organisms: None Reported Past Surgical History: Tubal Ligation Additional Past Surgical History / Comment(s): Excision of pilonidal cyst Past Anesthesia/Blood Transfusion Reactions: No Reported Reaction Past Psychological History: Anxiety, Depression Smoking Status: Current every day smoker Past Alcohol Use History: Rare Past Drug Use History: None Reported - Past Family History Mother Family Medical History: Cancer Additional Family Medical History / Comment(s): Mother from cancer, unknown primary Father Family Medical History: COPD Additional Family Medical History / Comment(s): Father from COPD <Belem Lerma - Last Filed: 12/16/23 19:51> General Exam Limitations: no limitations <Belem Lerma - Last Filed: 12/16/23 19:51> Limitations: no limitations General appearance: alert, in no apparent distress Head exam: Present: atraumatic, normocephalic Eye exam: Present: normal appearance Neck exam: Present: normal inspection Respiratory exam: Present: normal lung sounds bilaterally. Absent: respiratory distress, wheezes, rales, rhonchi, stridor Cardiovascular Exam: Present: regular rate, normal rhythm, normal heart sounds. Absent: systolic murmur, diastolic murmur, rubs, gallop, clicks Rectal exam: Present: normal inspection, tenderness Neurological exam: Present: alert, oriented X3 Psychiatric exam: Present: normal affect, normal mood Skin exam: Present: warm, dry <Tramaine Mills - Last Filed: 12/19/23 19:15> - General Exam Comments Initial Comments: Visual Physical Exam Vital signs reviewed General: Well-appearing, nontoxic, no acute distress. Head: Normocephalic, atraumatic Eyes: PERRLA, EOMI ENT: Airway patent Chest: Nonlabored breathing Skin: No visual rash, normal skin tone Neuro: Alert and oriented 3 Musculoskeletal: No gross abnormalities (Belem Lerma) Course Vital Signs 12/16/23 12/16/23 19:40 23:45 Temperature 97.8 F Pulse Rate 79 83 Respiratory 20 16 Rate Blood Pressure 107/73 113/70 O2 Sat by Pulse 96 95 Oximetry Medical Decision Making <Belem Lerma - Last Filed: 12/16/23 19:51> - Lab Data Result diagrams: 12/16/23 20:49 12/16/23 20:49 <Tramaine Mills - Last Filed: 12/19/23 19:15> - Medical Decision Making Quick note preformed and electronically signed by Belem Lerma PA-C (Belem Lerma) Was pt. sent in by a medical professional or institution ([facility], ATOMIC PROCESS ENGINEER, urgent care, hospital, or [facility]...) When possible be specific @ -No Did you speak to anyone other than the patient for history (EMS, parent, family, police, friend...)? What history was obtained from this source @ -No Did you review nursing and triage notes (agree or disagree)? Why? @ -I reviewed and agree with nursing and triage notes Were old charts reviewed (outside hosp., previous admission, EMS record, old EKG, old radiological studies, urgent care reports/EKG's, [facility] records)? Report findings @ -No old charts were reviewed Differential Diagnosis (chest pain, altered mental status, abdominal pain women, abdominal pain men, vaginal bleeding, weakness, fever, dyspnea, syncope, headac he, dizziness, GI bleed, back pain, seizure, CVA, palpatations, mental health, musculoskeletal)? @ -MDM Differential GI Bleed: Esophageal varices, aortoenteric fistula, May-Gonzales, gastritis, peptic ulcer disease, diverticulosis, inflammatory bowel disease, hemorrhoids, fissure, colitis, malignancy, Meckels diverticulum this is not meant to be an all- inclusive list. EKG interpreted by me (3pts min.). @ -As above X-rays interpreted by me (1pt min.). @ -None done CT interpreted by me (1pt min.). @ -CT shows no significant acute finding is seen to account for patient's clinical symptoms of rectal pain and bleeding. If there is continued concern for acute GI bleed, GI bleed protocol CT can be performed to further evaluate U/S interpreted by me (1pt. min.). @ -None done What testing was considered but not performed or refused? (CT, X-rays, U/S, labs)? Why? @ -None What meds were considered but not given or refused? Why? @ -None Did you discuss the management of the patient with other professionals (professionals i.e. , PA, ATOMIC PROCESS ENGINEER, lab, RT, psych nurse, social services, makeup instructor, teacher, chief fundraising officer, casey saw operator)? Give summary @ -No Was smoking cessation discussed for >3mins.? @ -No Was critical care preformed (if so, how long)? @ -No Were there social determinants of health that impacted care today? How? (Homelessness, low income, unemployed, alcoholism, drug addiction, transportation, low edu. Level, literacy, decrease access to med. care, nursing home, rehab)? @ -No Was there de-escalation of care discussed even if they declined (Discuss DNR or withdrawal of care, Hospice)? DNR status @ -No What co-morbidities impacted this encounter? (DM, HTN, Smoking, COPD, CAD, Cancer, CVA, ARF, Chemo, Hep., AIDS, mental health diagnosis, sleep apnea, morbid obesity)? @ -None Was patient admitted / discharged? Hospital course, mention meds given and route, prescriptions, significant lab abnormalities, going to OR and other pertinent info. @ -53-year-old female presented with chief complaint of dysuria and rectal pain with bleeding. Workup is initiated by triage. She is later placed in a room where the history and physical exam are conducted. Lab work shows no leukocytosis or anemia. Urine is positive for UTI. On exam there was nonspecific rectal tenderness. CT was obtained which showed no acute process to account for the patient's symptoms. She will be treated for UTI with Keflex and instructed to follow-up with her PCP. Discharged home. Follow-up with PCP. Report back to ER with any new or worsening symptoms. Discussed return parameters and answered all questions. Patient conveyed verbal understanding and agreed to the plan. I discussed this case in detail with my attending Dr. Mart Undiagnosed new problem with uncertain prognosis? @ -No Drug Therapy requiring intensive monitoring for toxicity (Heparin, Nitro, Insulin, Cardizem)? @ -No Were any procedures done? @ -No Diagnosis/symptom? @ -UTI, rectal pain Acute, or Chronic, or Acute on Chronic? @ -Acute Uncomplicated (without systemic symptoms) or Complicated (systemic symptoms)? @ -Uncomplicated Side effects of treatment? @ -No Exacerbation, Progression, or Severe Exacerbation? @ -No Poses a threat to life or bodily function? How? (Chest pain, USA, DC, pneumonia, PE, COPD, DKA, ARF, appy, cholecystitis, CVA, Diverticulitis, Homicidal, Suicidal, threat to staff... and all critical care pts) @ -No (Tramaine Mills) - Lab Data Lab Results 12/16/23 12/16/23 12/16/23 Range/Units 19:52 20:49 20:49 WBC 10.2 (3.8-10.6) k/uL RBC 4.91 (3.80-5.40) m/uL Hgb 13.4 (11.4-16.0) gm/dL Hct 41.0 (34.0-46.0) % MCV 83.6 (80.0-100.0) fL MCH 27.3 (25.0-35.0) pg MCHC 32.7 (31.0-37.0) g/dL RDW 13.7 (11.5-15.5) % Plt Count 317 (150-450) k/uL MPV 7.6 Neutrophils % 59 % Lymphocytes % 32 % Monocytes % 4 % Eosinophils % 1 % Basophils % 1 % Neutrophils # 6.1 (1.3-7.7) k/uL Lymphocytes # 3.3 (1.0-4.8) k/uL Monocytes # 0.4 (0-1.0) k/uL Eosinophils # 0.1 (0-0.7) k/uL Basophils # 0.1 (0-0.2) k/uL PT 10.2 (10.0-12.5) sec INR 0.9 (<1.2) APTT 24.7 (22.0-30.0) sec Sodium (137-145) mmol/L Potassium (3.5-5.1) mmol/L Chloride (98-107) mmol/L Carbon Dioxide (22-30) mmol/L Anion Gap mmol/L BUN (7-17) mg/dL Creatinine (0.52-1.04) mg/dL Est GFR (CKD-EPI)AfAm (>60 ml/min/1.73 sqM) Est GFR (CKD-EPI)NonAf (>60 ml/min/1.73 sqM) Glucose (74-99) mg/dL Calcium (8.4-10.2) mg/dL Total Bilirubin (0.2-1.3) mg/dL AST (14-36) U/L ALT (4-34) U/L Alkaline Phosphatase (38-126) U/L Total Protein (6.3-8.2) g/dL Albumin (3.5-5.0) g/dL Urine Color Light Yellow Urine Appearance Cloudy H (Clear) Urine pH 5.5 (5.0-8.0) Ur Specific [place] 1.018 (1.001-1.035) Urine Protein Negative (Negative) Urine Glucose (UA) Negative (Negative) Urine Ketones Negative (Negative) Urine Blood Trace H (Negative) Urine Nitrite Negative (Negative) Urine Bilirubin Negative (Negative) Urine Urobilinogen <2.0 (<2.0) mg/dL Ur Leukocyte Esterase Large H (Negative) Urine RBC 5 (0-5) /hpf Urine WBC 72 H (0-5) /hpf Ur Squamous Epith Cells 4 (0-4) /hpf Hyaline Casts 6 H (0-2) /lpf Urine Mucus Rare H (None) /hpf 12/16/23 Range/Units 20:49 WBC (3.8-10.6) k/uL RBC (3.80-5.40) m/uL Hgb (11.4-16.0) gm/dL Hct (34.0-46.0) % MCV (80.0-100.0) fL MCH (25.0-35.0) pg MCHC (31.0-37.0) g/dL RDW (11.5-15.5) % Plt Count (150-450) k/uL MPV Neutrophils % % Lymphocytes % % Monocytes % % Eosinophils % % Basophils % % Neutrophils # (1.3-7.7) k/uL Lymphocytes # (1.0-4.8) k/uL Monocytes # (0-1.0) k/uL Eosinophils # (0-0.7) k/uL Basophils # (0-0.2) k/uL PT (10.0-12.5) sec INR (<1.2) APTT (22.0-30.0) sec Sodium 136 L (137-145) mmol/L Potassium 4.4 (3.5-5.1) mmol/L Chloride 104 (98-107) mmol/L Carbon Dioxide 24 (22-30) mmol/L Anion Gap 8 mmol/L BUN 25 H (7-17) mg/dL Creatinine 1.14 H (0.52-1.04) mg/dL Est GFR (CKD-EPI)AfAm 64 (>60 ml/min/1.73 sqM) Est GFR (CKD-EPI)NonAf 55 (>60 ml/min/1.73 sqM) Glucose 122 H (74-99) mg/dL Calcium 9.3 (8.4-10.2) mg/dL Total Bilirubin 0.4 (0.2-1.3) mg/dL AST 48 H (14-36) U/L ALT 31 (4-34) U/L Alkaline Phosphatase 112 (38-126) U/L Total Protein 7.5 (6.3-8.2) g/dL Albumin 4.0 (3.5-5.0) g/dL Urine Color Urine Appearance (Clear) Urine pH (5.0-8.0) Ur Specific [place] (1.001-1.035) Urine Protein (Negative) Urine Glucose (UA) (Negative) Urine Ketones (Negative) Urine Blood (Negative) Urine Nitrite (Negative) Urine Bilirubin (Negative) Urine Urobilinogen (<2.0) mg/dL Ur Leukocyte Esterase (Negative) Urine RBC (0-5) /hpf Urine WBC (0-5) /hpf Ur Squamous Epith Cells (0-4) /hpf Hyaline Casts (0-2) /lpf Urine Mucus (None) /hpf Disposition <Belem Lerma - Last Filed: 12/16/23 19:51> Is patient prescribed a controlled substance at d/c from ED?: No Time of Disposition: 23:38 <Tramaine Mills - Last Filed: 12/19/23 19:15> Clinical Impression: UTI (urinary tract infection), Rectal pain Disposition: HOME SELF-CARE Condition: Good Instructions (If sedation given, give patient instructions): Urinary Tract Infection in Women (ED), Rectal Pain (ED) Additional Instructions: Follow-up with primary care provider. Report back to ER with any new or worsening symptoms. Take medication as prescribed. Prescriptions: Cephalexin [Keflex] 500 mg PO Q12HR 7 Days #14 cap Referrals: Marina Hinds DO [Primary Care Provider] - 1-2 days
[2023-12-16 19:54] VITALS: TEMP 97.8
[2023-12-16 20:14] LABS: Appearance,Urine Cloudy (Clear); Bilirubin,Urine Negative (Negative); Blood,Urine Trace (Negative); Color,Urine Light Yellow; Glucose,Urine (UA) Negative (Negative); Hyaline Casts,Urine 6 /lpf (0-2); Ketones,Urine Negative (Negative); Leukocyte Esterase,Urine Large (Negative); Mucus,Urine Rare /hpf; Nitrite,Urine Negative (Negative); PH, Urine 5.5 (5.0-8.0); Protein,Urine Negative (Negative); RBC,Urine 5 /hpf (0-5); Specific Gravity,Urine 1.018 (1.001-1.035); Squamous Epithelial Cell,Urine 4 /hpf (0-4); Urobilinogen,Urine <2.0 mg/dL (<2.0); WBC,Urine 72 /hpf (0-5)
[2023-12-16 21:46] LABS: Basophils # (A) 0.1 k/uL (0-0.2); Basophils % (A) 1 %; Eosinophils # (A) 0.1 k/uL (0-0.7); Eosinophils % (A) 1 %; HGB 13.4 gm/dL (11.4-16.0); Lymphocytes # (A) 3.3 k/uL (1.0-4.8); Lymphocytes % (A) 32 %; MCH 27.3 pg (25.0-35.0); MCHC 32.7 g/dL (31.0-37.0); MCV 83.6 fL (80.0-100.0); Mean Platelet Volume 7.6; Monocytes # (A) 0.4 k/uL (0-1.0); Monocytes % (A) 4 %; Neutrophils # (A) 6.1 k/uL (1.3-7.7); Neutrophils % (A) 59 %; Platelet Count 317 k/uL (150-450); RBC 4.91 m/uL (3.80-5.40); RDW 13.7 % (11.5-15.5); WBC 10.2 k/uL (3.8-10.6)
[2023-12-16 21:54] LABS: ALT 31 U/L (4-34); AST 48 U/L (14-36); African American GFR (CKD) 64 (>60 ml/min/1.73 sqM); Alkaline Phosphatase 112 U/L (38-126); Anion Gap 8 mmol/L; Blood Urea Nitrogen 25 mg/dL (7-17); Calcium 9.3 mg/dL (8.4-10.2); Carbon Dioxide 24 mmol/L (22-30); Chloride 104 mmol/L (98-107); Glucose 122 mg/dL (74-99); Non-African American GFR(CKD) 55 (>60 ml/min/1.73 sqM); Potassium 4.4 mmol/L (3.5-5.1); Sodium 136 mmol/L (137-145); Total Bilirubin 0.4 mg/dL (0.2-1.3); Total Protein 7.5 g/dL (6.3-8.2)
[2023-12-16 21:56] LABS: INR 0.9 (<1.2); Partial Thromboplastin Time 24.7 sec (22.0-30.0); Prothrombin Time 10.2 sec (10.0-12.5)
--- NOTE | 2023-12-16 23:23 | CT ---
EXAMINATION TYPE: CT abdomen pelvis w con DATE OF EXAM: 12/16/2023 HISTORY: Rectal pain and bleeding CT DLP: 2143.1mGycm Automated Exposure Control for Dose Reduction was Utilized. CONTRAST: CT scan of the abdomen and pelvis is performed with IV Contrast, patient injected with 80 cc mL of Is ovue 300. COMPARISON: Prior CT August 26, 2022 FINDINGS: LUNG BASES: No significant abnormality is appreciated. LIVER/GB: Liver is diffusely low dense consistent with fatty infiltrative hepatocellular disease. Con tracted gallbladder is noted. PANCREAS: No significant abnormality is seen. SPLEEN: No significant abnormality is seen. ADRENALS: No significant abnormality is seen. KIDNEYS: There are 2 nonobstructing calculi in the left kidney on current study measuring 2 mm in siz e coronal image 73. There are 2 adjacent nonobstructing calculi in the lower pole right kidney on cor onal images 66 and 67 also measuring 2 mm in size. There is symmetric cortical medullary uptake and e xcretion without hydronephrosis seen bilaterally. BOWEL: Appendix within normal limits for base of cecum. No abnormal small or large bowel dilatation. UTERUS/ADNEXA: Anteverted uterus. Scattered tiny bilateral pelvic phleboliths. Dystrophic calcificati on in the pelvis axial image 76 is redemonstrated. LYMPH NODES: No greater than 1cm abdominal or pelvic lymph nodes are appreciated. OSSEOUS STRUCTURES: No significant abnormality is seen. OTHER: Dystrophic calcification in the anterior left abdomen axial image 55 redemonstrated. IMPRESSION: No significant acute finding is seen to account for patient's clinical symptoms of rectal pain and bleeding. If there is continued concern for acute GI bleed, GI bleed protocol CT can be per formed to further evaluate.
[2023-12-17 00:21] VITALS: BP 113/70; PULSE 83; RESP 16
== END 2023-12-16 23:47 | disposition home or self-care (01) ==
LOC: EC 19:23
DX: N39.0 Urinary tract infection, site not specified (principal); K62.89 Other specified diseases of anus and rectum; I10 Essential (primary) hypertension; E11.9 Type 2 diabetes mellitus without complications; F41.9 Anxiety disorder, unspecified; F32.A Depression, unspecified; F17.200 Nicotine dependence, unspecified, uncomplicated; Z79.84 Long term (current) use of oral hypoglycemic drugs; Z79.899 Other long term (current) drug therapy
CPT/HCPCS: 99284 ×2; 36415; 80053; 85025; 85610; 85730; 81001; 87086; 87077; 87186; 74177; Q9967

== ENCOUNTER → 2025-02-02 | Outpatient (CLI) | payer BC ==
--- NOTE | 2025-02-02 08:41 | MM ---
Reason for Exam: Screening (asymptomatic). Patient History: Menarche at age 9. First Full-Term at age 17. Postmenopausal. 2019, Excisional Biopsy on the Left side. 06/03/2018, Benign Core Biopsy on the left side. 06/03/2018, Benign Core Biopsy on the left side. Risk Values: Dinorah 5 year model risk: 1.4%. NCI Lifetime model risk: 9.9%. Prior Study Comparison: 06/03/2018 Left Diagnostic Mammogram, [facility]. Tissue Density: The breasts are heterogeneously dense, which may obscure small masses. Findings: Analyzed By CAD. There is increasing distortion with heterogeneous calcifications in the central aspect of the left breast . 2 biopsy clips in the left breast are redemonstrated. There are several stable small masses scattered throughout the left breast. Overall Assessment: Incomplete: need additional imaging evaluation, BI-RAD 0 Management: Special View Mammogram of the left breast. Diagnostic Breast Ultrasound of the left breast. Advised return for spot magnification views left breast. Advised return for left breast ultrasound. Patient should continue monthly self-breast exams. A clinical breast exam by your physician is recommended on an annual basis. This exam should not preclude additional follow-up of suspicious palpable abnormalities. Note on Dinorah scores and lifetime risk: 1. A Dinorah score greater than 3% is considered moderate risk. If this is the case, consider specialist referral to assess eligibility for a risk reducing agent. 2. If overall lifetime risk for the development of breast cancer is 20% or higher, the patient may qualify for future screening with alternating mammogram and breast MRI. [facility], , 02/02/2025 8:37 AM. Electronically signed and approved by: Carlos A English M.D.
== END | disposition home or self-care (01) ==
LOC: RADMAMWWP 07:35
PROVIDERS: ATTEND Family Medicine
DX: Z12.31 Encounter for screening mammogram for malignant neoplasm of breast (principal); R92.333 Mammographic heterogeneous density, bilateral breasts; R92.1 Mammographic calcification found on diagnostic imaging of breast; Z78.0 Asymptomatic menopausal state
CPT/HCPCS: 77063; 77067

== ENCOUNTER → 2025-02-04 | Outpatient (CLI) | payer BC ==
--- NOTE | 2025-02-04 15:19 | MM ---
Reason for Exam: Additional evaluation requested from abnormal screening. Last screening mammogram was performed less than 1 month ago. Patient History: Menarche at age 9. First Full-Term at age 17. Postmenopausal. 2019, Excisional Biopsy on the Left side. 06/03/2018, Benign Core Biopsy on the left side. 06/03/2018, Benign Core Biopsy on the left side. Risk Values: Dinorah 5 year model risk: 1.4%. NCI Lifetime model risk: 9.9%. Prior Study Comparison: 06/03/2018 Left Diagnostic Mammogram, [facility]. 02/02/2025 Bilateral MG 3D screening mammo w/cad, [facility]. Tissue Density: Left: There are scattered areas of fibroglandular density. Findings: Analyzed By CAD. There is an area of distortion with microcalcifications and increased soft tissue density for which tissue diagnosis is recommended. Area is located at the 12:00 position approximately 9 cm from the nipple. Overall Assessment: Suspicious, BI-RAD 4 Management: Stereotactic Core Biopsy of the left breast. . Results were given to the patient verbally at the time of exam. Patient should continue monthly self-breast exams. A clinical breast exam by your physician is recommended on an annual basis. This exam should not preclude additional follow-up of suspicious palpable abnormalities. Note on Dinorah scores and lifetime risk: 1. A Dinorah score greater than 3% is considered moderate risk. If this is the case, consider specialist referral to assess eligibility for a risk reducing agent. 2. If overall lifetime risk for the development of breast cancer is 20% or higher, the patient may qualify for future screening with alternating mammogram and breast MRI. [facility], , 02/04/2025 3:16 PM. Electronically signed and approved by: Vipin Browning M.D. Radiologis
== END | disposition home or self-care (01) ==
LOC: RADMAMWWP 14:45
PROVIDERS: ATTEND Family Medicine
DX: R92.8 Other abnormal and inconclusive findings on diagnostic imaging of breast (principal); R92.322 Mammographic fibroglandular density, left breast; Z78.0 Asymptomatic menopausal state
CPT/HCPCS: 77061; 77065

== ENCOUNTER → 2025-02-11 | Day surgery (SDC) | payer BC ==
[2025-02-11] MEDS: ALPRAZolam 0.5 MG TAB PO PRN (10:06)
[2025-02-11 11:25] VITALS: BP 111/73; PULSE 54; RESP 16; TEMP 98.1
--- NOTE | 2025-02-15 13:47 | MM ---
Risk Values: Dinorah 5 year model risk: 1.4%. NCI Lifetime model risk: 9.9%. Prior Study Comparison: 06/03/2018 Left Diagnostic Mammogram, [facility]. 02/02/2025 Bilateral MG 3D screening mammo w/cad, [facility]. 02/04/2025 Left MG 3D work up w/cad , [facility]. Pathology Description: Location: lower inner quadrant. Marker Left Behind. Specimen Radiograph. Calcium Found: Yes Approach: Medial to Lateral Needle Type: Eviva Cores: 13 Skin Nicks: 1 Gauge: 9 The calcifications in question within the left breast were targeted by the undersigned. Procedure was performed by the undersigned. Informed consent was obtained and all of the patients questions were answered. The standard sterile technique was utilized and appropriate local anesthesia was obtained with 1% licocaine. Mammotome probe was advanced and multiple core samples were obtained and sent to pathology for interpretation. Microclip marker was deployed at the site of biopsy. Patient was transferred to mammography suite for post procedure mammogram. Post procedural mammogram demonstrates appropriate deployment of radiopaque clip marker. The patient tolerated the procedure well and left the department in stable condition. Pathology results are pending. Impression: Successful stereotactic core biopsy left breast. Pathology Results: Result: Benign, Fibrocystic change. Pathology and radiology were reviewed. Findings are concordant. LEFT BREAST, STEREOTACTIC CORE BIOPSY: Fibrocystic change with columnar cell change, focal usual ductal hyperplasia, calcification, multinucleated histiocytic inflammatory reaction and chronic mastitis. 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 Overall Assessment: Benign Management: Diagnostic Mammogram of the left breast in 6 months. Electronically signed and approved by: Vipin Browning M.D. Radiologis
== END ==
LOC: RADMAMWWP 09:47
PROVIDERS: ATTEND Surgery
DX: N60.12 Diffuse cystic mastopathy of left breast (principal); N61.0 Mastitis without abscess
CPT/HCPCS: 88305; 19081; A4648; J2003